=== PATIENT | male | born 1980 | race Caucasian/White ===

== ENCOUNTER 2020-06-04 18:45 | Inpatient (IN) ==
[2020-06-04 19:16] VITALS: BMI 36.5
--- NOTE | 2020-06-04 20:23 | DR.URIAD ---
HPI Time Seen Time Seen by Provider: 06/04/20 20:21 PCP Primary Care Physician: VIVEK MUNROE HPI Comment HPI Comment: cough, fever to 100.2 and congestion x one week; has had constant adams for the past month as well as fever and "cold chills" which started 05/06 and sent him to the ER where both rapid and "send off" covid tests were negative; symptoms persisted and he went [facility] for the same thing where cxr and repeat covid were negative; he then went to [facility] where he was admitted for LP which was negative; ct was negative as well; he was told by neuro he has migraine; he went to another doctor and got an mri w/contrast which was also negative; now he says the headache is actually better but the cough is awful and unrelenting; he was placed on losartan while in [facility] and is still taking that; he has also lost about twenty pounds because he has no appetite. Complaint Chief Complaint:: PT AMBUALTORY IN ED WITH C/O COUGH, DIARRHA, CHILLS, ADAMS FOR 5 WEEKS. A;SO STATES HE HAS LOST ABOUT 20 POUNDS. COVID-19 Coronavirus risk:travel/contact w/high risk person: Yes Has patient experienced Coronavirus symptoms: Yes Coronavirus symptoms experienced: Fever, Coughing and Shortness of Breath Source History Provided: Patient Mode of Arrival Mode of Arrival: Ambulatory Timing Onset of Chief Complaint: 04/30/20 PMH PMH Past Medical History: Yes Past Medical History: Hypertension Past Surgical History: No Family History History of Family Medical Conditions: Yes Family Medical History: Diabetes Mellitus and Hypertension Social History Does patient currently use any type of tobacco product: No Have you used tobacco products in the last 12 months: No Type of Tobacco Use: Smokeless Does any household member use tobacco: No Do you use any recreational Drugs:: No Lives With: Spouse Lives Where: Home Travel Risk Coronavirus risk:travel/contact w/high risk person: Yes Has patient experienced Coronavirus symptoms: Yes Coronavirus symptoms experienced: Fever, Coughing and Shortness of Breath Infectious screening In the last 2 months have you had wt loss of >10#?: NO Have you had fever, night sweats or hemotysis?: No Have you traveled outside the country in the last 6 months?: No Isolation: Droplet ROS Review of Systems Constitutional: See HPI, Chills and Malaise Respiratoy: See HPI Cardiovascular: No Symptoms Reported Gastrointestinal/Abdominal: Diarrhea (x one week) Genitourinary: No Symptoms Reported Neurological: See HPI Musculoskeletal: No Symptoms Reported Integumentary: No Symptoms Reported Hematologic/Lymphatic: No Symptoms Reported Endocrine: See HPI, Unexplained Weight Loss and Decreased Appetite PE Vital Signs Vitals: Temperature 99.3 F Pulse Rate 88 Respiratory Rate 20 Blood Pressure 132/91 O2 Sat by Pulse Oximetry 98 General Limitations: No Limitations General Appearance: Alert and In No Apparent Distress Head Head Exam: Normal Inspection, Atraumatic and Normocephalic Eyes Eye exam: Normal Appearance, PERRL and EOMI Neck Neck Exam: Normal Inspection, Full ROM and Trachea Midline Chest Chest Inspection: Normal Inspection and Symmetric Chest Wall Rise Respiratory Respiratory Exam: Normal Lung Sounds Bilat Respiratory Exam: Bilateral: Clear to Auscultation Cardiovascular Cardiovascular Exam: Regular Rate and Normal Rhythm Abdominal Exam Abdominal Exam: Normal Inspection, Normal Bowel Sounds and Soft Extremeties Extremities Exam: Normal Inspection Neurologic Neurological Exam: Alert, Oriented X3 and CN II-XII Intact Psychiatric Psychiatric Exam: Normal Affect COURSE Reevaluation 1st: Unchanged 2nd: Unchanged (wants to go home; talked to pt and he chose to stay) Consultation Call Returned: 23:20 (Dr Reese accepts admission) ROR Labs Reviewed Result Diagrams: 06/04/20 20:33 06/04/20 20:33 Laboratory: WBC 6.6 X10^3/uL (3.6-10.0) 06/04/20 20:33 RBC 4.69 X10^6/uL (4.7-6.0) L 06/04/20 20:33 Hgb 14.2 g/dL (13.5-18.0) 06/04/20 20:33 Hct 39.8 % (42.0-54.0) L 06/04/20 20:33 MCV 84.8 fL (80.0-100.0) 06/04/20 20:33 MCH 30.2 pg (27.0-34.0) 06/04/20 20: MCHC 35.6 g/dL (33.0-35.0) H 06/04/20 20:33 RDW 12.4 % (11.6-16.5) 06/04/20: Plt Count 312 X10^3/uL (150.0-450.0) 06/04/20: MPV 7.7 fL (7.4-11.0) 06/04/20: Neut % (Auto) 60.3 % (42.0-75.0) 06/04/20: Lymph % (Auto) 28.5 % (21.0-51.0) 06/04/20: Hayes % (Auto) 9.1 % (0.0-13.0) 06/04/20: Eos % (Auto) 1.9 % (0.9-2.9) 06/04/20 Baso % (Auto) 0.2 % (0.2-1.0) 06/04/20 Neut # (Auto) 4.0 x10^3/uL (2.2-4.8) 06/04/20: Lymph # (Auto) 1.9 X10^3/uL (1.3-2.9) 06/04/20: Hayes # (Auto) 0.6 x10^3/uL (0.3-0.8) 06/04/20: Eos # (Auto) 0.1 x10^3/uL (0.0-0.2) 06/04/20: Baso # (Auto) 0.0 X10^3/uL (0.0-0.1) 06/04/20: Absolute Nucleated RBC 0.0 /100WBC 06/04/20: ESR 87 MM/HOUR (0-15) H 06/04/20: Sample Site Rr 06/04/20 22:46 ABG pH 7.420 (7.35-7.45) 06/04/20 22:46 ABG pCO2 40.0 mmHg (35.0-45.0) 06/04/20 22:46 ABG pO2 73.0 mmHg (80.0-100.0) L 06/04/20 22:46 ABG HCO3 25.9 mmol/L (22-26) 06/04/20 22:46 ABG O2 Saturation 95.0 % (90-100) 06/04/20 22:46 ABG Base Excess 1.3 mmol/L (-2.0-2.0) 06/04/20 22:46 Rafita Test Pos 06/04/20 22:46 A-a Gradient 27.0 mmHg 06/04/20 22:46 FiO2 21.0 06/04/20 22:46 Blood Gas Comments Mikaela well ae 06/04/20 22:46 Sodium 140 mmol/L (136-145) 06/04/20 20:33 Corrected Sodium TNP 06/04/20 20:33 Potassium 3.2 mmol/L (3.5-5.1) L 06/04/20 20:33 Chloride 102 mmol/L (98-107) 06/04/20 20:33 Carbon Dioxide 28.8 mmol/L (21-32) 06/04/20 20:33 BUN 9 mg/dL (7-18) 06/04/20 20:33 Creatinine 1.01 mg/dL (0.70-1.30) 06/04/20 20:33 Est GFR (MDRD) Af Amer > 60 (>60) 06/04/20 20:33 Est GFR (MDRD) Non-Af > 60 (>60) 06/04/20 20:33 Glucose 108 mg/dL (65-99) H 06/04/20 20:33 Calcium 9.0 mg/dL (8.5-10.1) 06/04/20 20:33 Corrected Calcium TNP 06/04/20 20:33 Ferritin 521 ng/mL (26-388) H 06/04/20 20:33 Total Bilirubin 0.50 mg/dL (0.2-1.0) 06/04/20 20:33 AST 26 Units/L (15-37) 06/04/20 20:33 ALT 53 Units/L (12-78) 06/04/20 20:33 Alkaline Phosphatase 165 Units/L (46-116) H 06/04/20 20:33 C-Reactive Protein 8.70 mg/L (0-3.0) H 06/04/20 20:33 Total Protein 8.3 g/dL (6.4-8.2) H 06/04/20 20:33 Albumin 3.9 g/dL (3.4-5.0) 06/04/20 20:33 Globulin 4.4 g/dL (2.5-4.5) 06/04/20 20:33 Albumin/Globulin Ratio 0.9 Ratio (1.1-2.1) L 06/04/20 20:33 TSH 3rd Generation 3.823 uIU/mL (0.358-3.74) H 06/04/20 20:33 Specimen Type Clean catch urine 06/04/20 23:32 Urine Color Yellow (YELLOW) 06/04/20 23:32 Urine Appearance Clear (CLEAR) 06/04/20 23:32 Urine pH 6.0 (5.0 - 8.0) 06/04/20 23:32 Ur Specific [place] 1.015 (1.000-1.030) 06/04/20 23:32 Urine Protein 1+ (NEGATIVE) 06/04/20 23:32 Urine Glucose (UA) Negative (NEGATIVE) 06/04/20 23:32 Urine Ketones Negative (NEGATIVE) 06/04/20 23:32 Urine Occult Blood Negative (NEGATIVE) 06/04/20 23:32 Urine Nitrite Negative (NEGATIVE) 06/04/20 23:32 Urine Bilirubin Negative (NEGATIVE) 06/04/20 23:32 Urine Urobilinogen Normal (NORMAL) 06/04/20 23:32 Ur Leukocyte Esterase Negative (NEGATIVE) 06/04/20 23:32 Urine RBC None seen /HPF (0-3) 06/04/20 23:32 Urine WBC None seen /HPF (0-5) 06/04/20 23:32 Ur Squamous Epith Cells Rare /HPF (NEGATIVE) 06/04/20 23:32 Urine Bacteria Negative /HPF (NEGATIVE) 06/04/20 23:32 Ur Culture Indicated? No/not indicated 06/04/20 23:32 SARS-CoV-2 (PCR) Positive (NEGATIVE) A 06/05/20 00:15 Opioid Opioid Risk Tool Age (Je box if 16-45): Yes History of Preadolescent Sexual Abuse: No Total: 1 Total Score Risk Category: Low Risk Copyright: Karan MANZANO predicting aberrant behaviors Diagnosis Discharge Problem: Bilateral interstitial pneumonia, Cough, COVID-19, Acute hypokalemia Instructions Instructions: Community-Acquired Pneumonia, Adult, [id number] Forms: Precautions for COVID19 Patient Portal Social Distancing
--- NOTE | 2020-06-04 20:34 | RAD ---
HISTORY:Fever, cough, shortness of breath, chills, diarrhea, headacheStudy: Single view chestComparison:NoneFindings:Single portable view submitted. Bilateral multifocal lung infiltrates are present suggestive of pneumonia.Cardiac and mediastinal contours are within normal limits .The soft tissues are intact .IMPRESSION:1. Bilateral multifocal lung infiltrates compatible with pneumonia.Electronically signed by: CHEYENNE PETERS (Jun 04, 2020 20:33:44)
[2020-06-04] MEDS ORDERED: ZITHROMAX INJ 500 MG VIAL 500 MG in NS 250 ML IV 250 ML IV SCH (20:44)
[2020-06-04] MEDS ORDERED: ROCEPHIN VIAL 1 GRAM 1 G in NS 100 ML IV + SPIKE MINIBAG* 100 ML IV ONE (20:44)
[2020-06-04 20:46] LABS: BASOPHILS % (AUTO) 0.2 % (0.2-1.0); EOSINOPHILS # (AUTO) 0.1 x10^3/uL (0.0-0.2); EOSINOPHILS % (AUTO) 1.9 % (0.9-2.9); HEMATOCRIT 39.8 % (42.0-54.0); HEMOGLOBIN 14.2 g/dL (13.5-18.0); LYMPHOCYTES # (AUTO) 1.9 X10^3/uL (1.3-2.9); LYMPHOCYTES % (AUTO) 28.5 % (21.0-51.0); MEAN CORPUSCULAR HEMOGLOBIN 30.2 pg (27.0-34.0); MEAN CORPUSCULAR HGB CONC 35.6 g/dL (33.0-35.0); MEAN CORPUSCULAR VOLUME 84.8 fL (80.0-100.0); MEAN PLATELET VOLUME 7.7 fL (7.4-11.0); MONOCYTES # (AUTO) 0.6 x10^3/uL (0.3-0.8); MONOCYTES % (AUTO) 9.1 % (0.0-13.0); NEUTROPHILS % (AUTO) 60.3 % (42.0-75.0); PLATELET COUNT 312 X10^3/uL (150.0-450.0); RED BLOOD COUNT 4.69 X10^6/uL (4.7-6.0); RED CELL DISTRIBUTION WIDTH 12.4 % (11.6-16.5); WHITE BLOOD COUNT 6.6 X10^3/uL (3.6-10.0)
[2020-06-04] MEDS ORDERED: ROCEPHIN VIAL 1 GRAM ONE (21:01)
[2020-06-04] MEDS ORDERED: NS 250 ML IV 250 ML IV ONE (21:01)
[2020-06-04] MEDS ORDERED: NS 100 ML IV + SPIKE MINIBAG* 100 ML IV ONE (21:01)
[2020-06-04] MEDS ORDERED: ZITHROMAX INJ 500 MG VIAL IV ONE (21:01)
[2020-06-04] MEDS ORDERED: NS 1000 ML 1,000 ML ONE (21:02)
[2020-06-04 21:07] LABS: ALANINE AMINOTRANSFERASE 53 Units/L (12-78); ALBUMIN 3.9 g/dL (3.4-5.0); ALKALINE PHOSPHATASE 165 Units/L (46-116); ASPARTATE AMINO TRANSFERASE 26 Units/L (15-37); BLOOD UREA NITROGEN 9 mg/dL (7-18); CARBON DIOXIDE 28.8 mmol/L (21-32); CHLORIDE 102 mmol/L (98-107); CREATININE 1.01 mg/dL (0.70-1.30); SODIUM 140 mmol/L (136-145); TOTAL PROTEIN 8.3 g/dL (6.4-8.2); TSH (3RD GENERATION) 3.823 uIU/mL (0.358-3.74); eGFR NON BLACK RACES > 60 (>60)
[2020-06-04 21:17] LABS: ERYTHROCYTE SEDIMENTATION RATE 87 MM/HOUR (0-15)
[2020-06-04] MEDS ORDERED: NS 1000 ML 1,000 ML IV SCH (22:00)
[2020-06-04 22:52] LABS: ABG ALLEN TEST POS; ABG BASE EXCESS 1.3 mmol/L (-2.0-2.0); ABG HCO3 25.9 mmol/L (22-26)
[2020-06-04] MEDS ORDERED: K-DUR TAB 20 MEQ PO ONE ×2 (23:22)
[2020-06-04 23:42] LABS: BILIRUBIN,URINE NEGATIVE (NEGATIVE); BLOOD/HEMOGLOBIN,URINE NEGATIVE (NEGATIVE); GLUCOSE, URINE NEGATIVE (NEGATIVE); KETONES,URINE NEGATIVE (NEGATIVE); LEUKOCYTE ESTERASE ,URINE NEGATIVE (NEGATIVE); NITRITES,URINE NEGATIVE (NEGATIVE); PROTEIN,URINE 1+ (NEGATIVE); UROBILINOGEN,URINE NORMAL (NORMAL)
[2020-06-04 23:51] LABS: APPEARANCE,URINE CLEAR (CLEAR); BACTERIA,URINE NEGATIVE /HPF (NEGATIVE); COLOR,URINE YELLOW (YELLOW); RBC,URINE NONE SEEN /HPF (0-3); SQUAMOUS EPITHELIAL CELL,UR RARE /HPF (NEGATIVE)
[2020-06-05] MEDS: NS 1000 ML 1,000 ML IV SCH (02:26)
[2020-06-05] MEDS: ASCORBIC ACID INJ MULTI-DOSE VIAL 1,500 MG in NS 100 ML IV 100 ML IV SCH ×4 (02:47→20:30)
[2020-06-05] MEDS: DECADRON TAB PO SCH ×2 (02:47→09:23)
[2020-06-05] MEDS ORDERED: PLAQUENIL PO SCH (03:00)
[2020-06-05 05:45] LABS: BASOPHILS % (AUTO) 0.3 % (0.2-1.0); EOSINOPHILS # (AUTO) 0.1 x10^3/uL (0.0-0.2); EOSINOPHILS % (AUTO) 2.6 % (0.9-2.9); HEMOGLOBIN 12.4 g/dL (13.5-18.0); LYMPHOCYTES # (AUTO) 2.2 X10^3/uL (1.3-2.9); LYMPHOCYTES % (AUTO) 41.8 % (21.0-51.0); MEAN CORPUSCULAR HEMOGLOBIN 30.6 pg (27.0-34.0); MEAN CORPUSCULAR HGB CONC 35.5 g/dL (33.0-35.0); MEAN CORPUSCULAR VOLUME 86.2 fL (80.0-100.0); MONOCYTES # (AUTO) 0.6 x10^3/uL (0.3-0.8); MONOCYTES % (AUTO) 11.6 % (0.0-13.0); NEUTROPHILS # (AUTO) 2.3 x10^3/uL (2.2-4.8); NEUTROPHILS % (AUTO) 43.7 % (42.0-75.0); PLATELET COUNT 276 X10^3/uL (150.0-450.0); RED BLOOD COUNT 4.06 X10^6/uL (4.7-6.0); RED CELL DISTRIBUTION WIDTH 12.4 % (11.6-16.5); WHITE BLOOD COUNT 5.3 X10^3/uL (3.6-10.0)
[2020-06-05 06:08] LABS: ALANINE AMINOTRANSFERASE 44 Units/L (12-78); ALBUMIN 3.3 g/dL (3.4-5.0); ALKALINE PHOSPHATASE 140 Units/L (46-116); ASPARTATE AMINO TRANSFERASE 20 Units/L (15-37); BLOOD UREA NITROGEN 8 mg/dL (7-18); CALCIUM 8.4 mg/dL (8.5-10.1); CARBON DIOXIDE 28.6 mmol/L (21-32); CHLORIDE 104 mmol/L (98-107); CREATININE 0.91 mg/dL (0.70-1.30); SODIUM 141 mmol/L (136-145); TOTAL PROTEIN 7.1 g/dL (6.4-8.2); eGFR NON BLACK RACES > 60 (>60)
[2020-06-05] MEDS ORDERED: K-RIDER 10 MEQ/NS 100 ML 10 MEQ/100 ML BAG IV PRN (07:31)
[2020-06-05] MEDS ORDERED: K-DUR TAB 20 MEQ PO PRN (07:31)
[2020-06-05] MEDS ORDERED: MAGNESIUM SULFATE 1 GRAM/100 mL PREMIX 1 GM/100 ML BAG IV PRN (07:31)
[2020-06-05] MEDS ORDERED: POTASSIUM CHL 40 MEQ/NS 0.45% 500 ML IV PRN (07:31)
[2020-06-05] MEDS ORDERED: MICRO K EXTEN CAP 10 MEQ PO PRN (07:31)
[2020-06-05] MEDS ORDERED: POTASSIUM CHL 60 MEQ/NS 0.45% 500 ML IV PRN (07:31)
[2020-06-05] MEDS ORDERED: POTASSIUM CHLORIDE LIQ 20 MEQ UDC PO PRN (07:31)
[2020-06-05] MEDS ORDERED: KLOR-CON PO PRN (07:31)
[2020-06-05] MEDS ORDERED: REMDESIVIR (INVESTIGATIONAL DRUG GS-5734) 200 MG in NS 250 ML IV 250 ML IV NR (09:00)
[2020-06-05] MEDS ORDERED: VITAMIN D (1.25MG) PO SCH (09:00)
[2020-06-05] MEDS ORDERED: VITAMIN A PO SCH (09:00)
[2020-06-05] MEDS ORDERED: PLAQUENIL ONE (09:08)
[2020-06-05] MEDS ORDERED: K-DUR TAB 20 MEQ PO ONE (09:08)
[2020-06-05] MEDS: LOVENOX INJ 30 MG SYR SC SCH ×2 (09:18→20:30)
[2020-06-05] MEDS ORDERED: NS 100 ML IV 100 ML IV ONE (09:18)
[2020-06-05] MEDS: ZINC SULFATE PO SCH ×2 (09:20→20:31)
[2020-06-05] MEDS: COZAAR PO SCH (09:22)
[2020-06-05] MEDS: TRICOR TAB 160 MG PO SCH (09:24)
[2020-06-05] MEDS ORDERED: ASCORBIC ACID INJ MULTI-DOSE VIAL IV ONE (09:28)
[2020-06-05] MEDS ORDERED: TYLENOL 325 MG TAB PO ONE (10:21)
[2020-06-05] MEDS: TYLENOL 325 MG TAB PO PRN (10:22)
--- NOTE | 2020-06-05 18:11 | DR.H&P ---
H&P - History & Physical for Day of: H&P Date: 06/05/20 - Chief Complaint Chief Complaint: WEAKNESS, CCC, SOB - History of Present Illness History of Present Illness: PT IS 40 WM, CO SICK WITH FEVER, FLU LIKE SYMPTOMS FOR 2 1/2 WEEKS, GETTING WORSE. PT HAD PMH OF HTN. PT HAD PNEUMONIA ON CXR IN ER. PT ADMITTED FOR TREATMENT COVID 19 PNEUMONIA. - Past Medical History Past Medical History: Hypertension - Family History Family Medical History: Diabetes Mellitus, Hypertension - Social History Does patient currently use any type of tobacco product: Yes (dip/snuff) Have you used tobacco products in the last 12 months: Yes Type of Tobacco Use: Smokeless Does any household member use tobacco: No Alcohol Use: Occasionally Drug Use: None - Medications Home Medications: No Known Drug Allergies Allergy (Verified 06/04/20 19:17) CONTINUE taking the following medications doxycycline monohydrate 100 mg PO BID 06/04/20 [History] losartan 50 mg PO QAM 06/04/20 [History] - Review of Systems Constitutional: Fever, Chills, Weakness, Malaise Eyes: No Symptoms Reported ENT: No Symptoms Reported Respiratory: Cough, Shortness of Breath, SOB with Excertion Cardiovascular: No Symptoms Reported Gastrointestinal: Nausea, Vomiting, Diarrhea Genitourinary: No Symptoms Reported Musculoskeletal: Back Pain Skin: No Symptoms Reported Neurological: No Symptoms Reported - Physical Exam Vital Signs: Temperature 98.9 F Pulse Rate [Right Brachial] 75 Pulse Rate [Left Radial] 79 Pulse Rate 88 Respiratory Rate 20 Blood Pressure [Right Arm] 120/66 Blood Pressure 132/91 O2 Sat by Pulse Oximetry 96 Oriented: Normal Ear: Normal Nose: Normal Throat: Normal Respiratory: Diminished Throughout Cardiovascular: Normal. negative: Edema : Normal Auscultation: Bowel Sounds: Normal Palpation: Normal Tenderness: Normal Skin: Decreased Turgur Musculoskeletal: Normal Psychiatric: Normal Mood Description: Calm Affect: Anxious Speech Pattern: Clear - Assessment/Plan (1) COVID-19 Status: Acute Plan: ADMIT, ICU ISOLATION. IV HYDRATION, BP CONTROL. SUPPLEMENTAL O2, ABG ON ADMISSION. STRICT I&OS, IV REMDESIVIR, SOLU MEDROL. RESP THERAPY, IV ZITHROMAX AND ZOSYN. CONVALESCENT PLASMA (2) Bilateral interstitial pneumonia Status: Acute (3) Hypertension Status: Acute (4) Acute hypokalemia Status: Acute - Allergies Allergies/Adverse Reactions: Allergies Allergy/AdvReac Type Severity Reaction Status Date / Time No Known Drug Allergies Allergy Verified 06/04/20 19:17
[2020-06-05] MEDS: ROCEPHIN VIAL 1 GRAM 1 G in NS 100 ML IV + SPIKE MINIBAG* 100 ML IV SCH (20:00)
[2020-06-05] MEDS: ZITHROMAX INJ 500 MG VIAL 500 MG in NS 250 ML IV 250 ML IV SCH (21:22)
[2020-06-06] MEDS: NS 1000 ML 1,000 ML IV SCH (02:15)
[2020-06-06] MEDS: ASCORBIC ACID INJ MULTI-DOSE VIAL 1,500 MG in NS 100 ML IV 100 ML IV SCH ×4 (02:16→20:00)
[2020-06-06] MEDS: TYLENOL 325 MG TAB PO PRN (03:57)
[2020-06-06 05:31] LABS: BASOPHILS % (AUTO) 0.2 % (0.2-1.0); EOSINOPHILS % (AUTO) 0.1 % (0.9-2.9); HEMATOCRIT 35.2 % (42.0-54.0); HEMOGLOBIN 12.5 g/dL (13.5-18.0); LYMPHOCYTES # (AUTO) 1.4 X10^3/uL (1.3-2.9); MEAN CORPUSCULAR HEMOGLOBIN 30.6 pg (27.0-34.0); MEAN CORPUSCULAR HGB CONC 35.4 g/dL (33.0-35.0); MEAN CORPUSCULAR VOLUME 86.4 fL (80.0-100.0); MEAN PLATELET VOLUME 8.3 fL (7.4-11.0); MONOCYTES # (AUTO) 0.6 x10^3/uL (0.3-0.8); MONOCYTES % (AUTO) 9.6 % (0.0-13.0); NEUTROPHILS # (AUTO) 4.1 x10^3/uL (2.2-4.8); NEUTROPHILS % (AUTO) 67.1 % (42.0-75.0); PLATELET COUNT 334 X10^3/uL (150.0-450.0); RED BLOOD COUNT 4.08 X10^6/uL (4.7-6.0); RED CELL DISTRIBUTION WIDTH 12.3 % (11.6-16.5)
[2020-06-06 06:11] LABS: ALANINE AMINOTRANSFERASE 48 Units/L (12-78); ALBUMIN 3.2 g/dL (3.4-5.0); ALKALINE PHOSPHATASE 139 Units/L (46-116); ASPARTATE AMINO TRANSFERASE 24 Units/L (15-37); BLOOD UREA NITROGEN 7 mg/dL (7-18); CALCIUM 8.7 mg/dL (8.5-10.1); CARBON DIOXIDE 26.2 mmol/L (21-32); CHLORIDE 108 mmol/L (98-107); COR CA(FOR HYPOALB) 9.3 mg/dL (8.5-10.1); COR NA(FOR HYPERGLY) 144 mmol/L (136-145); CREATININE 0.79 mg/dL (0.70-1.30); SODIUM 144 mmol/L (136-145); TOTAL PROTEIN 7.2 g/dL (6.4-8.2); eGFR NON BLACK RACES > 60 (>60)
[2020-06-06] MEDS: ROBITUSSIN DM PO SCH ×4 (10:48→21:00)
[2020-06-06] MEDS: ZINC SULFATE PO SCH ×2 (10:48→21:00)
[2020-06-06] MEDS: SOLU-Medrol 125 MG VIAL IVP SCH ×3 (10:48→21:00)
[2020-06-06] MEDS: PROTONIX INJ 40 MG VIAL IVP SCH (10:49)
[2020-06-06] MEDS: TRICOR TAB 160 MG PO SCH (10:49)
[2020-06-06] MEDS: COZAAR PO SCH (10:49)
[2020-06-06] MEDS: LOVENOX INJ 30 MG SYR SC SCH ×2 (10:50→21:00)
[2020-06-06] MEDS: REMDESIVIR (INVESTIGATIONAL DRUG GS-5734) 100 MG in NS 250 ML IV 250 ML IV SCH (11:45)
[2020-06-06] MEDS: DUONEB 0.5 MG/3 MG (3 mL) NEB SCH ×3 (14:00→21:39)
[2020-06-06] MEDS ORDERED: BENADRYL INJ 50 MG VIAL IVP ONE (15:56)
[2020-06-06] MEDS: TYLENOL 325 MG TAB PO ONE (16:00)
[2020-06-06] MEDS ORDERED: TYLENOL 325 MG TAB PO ONE (16:30)
[2020-06-06] MEDS: ROCEPHIN VIAL 1 GRAM 1 G in NS 100 ML IV + SPIKE MINIBAG* 100 ML IV SCH (20:10)
[2020-06-06] MEDS: ZITHROMAX INJ 500 MG VIAL 500 MG in NS 250 ML IV 250 ML IV SCH (22:00)
[2020-06-07] MEDS: DUONEB 0.5 MG/3 MG (3 mL) NEB SCH ×6 (01:35→21:20)
[2020-06-07] MEDS: ASCORBIC ACID INJ MULTI-DOSE VIAL 1,500 MG in NS 100 ML IV 100 ML IV SCH ×4 (04:00→21:08)
[2020-06-07] MEDS ORDERED: TYLENOL 325 MG TAB PO ONE (04:23)
[2020-06-07 05:17] LABS: BASOPHILS # (AUTO) 0.1 X10^3/uL (0.0-0.1); HEMATOCRIT 37.5 % (42.0-54.0); HEMOGLOBIN 13.2 g/dL (13.5-18.0); LYMPHOCYTES # (AUTO) 1.4 X10^3/uL (1.3-2.9); LYMPHOCYTES % (AUTO) 12.5 % (21.0-51.0); MEAN CORPUSCULAR HEMOGLOBIN 30.4 pg (27.0-34.0); MEAN CORPUSCULAR HGB CONC 35.2 g/dL (33.0-35.0); MEAN CORPUSCULAR VOLUME 86.2 fL (80.0-100.0); MEAN PLATELET VOLUME 7.9 fL (7.4-11.0); MONOCYTES # (AUTO) 0.3 x10^3/uL (0.3-0.8); MONOCYTES % (AUTO) 2.4 % (0.0-13.0); NEUTROPHILS # (AUTO) 9.1 x10^3/uL (2.2-4.8); NEUTROPHILS % (AUTO) 84.1 % (42.0-75.0); PLATELET COUNT 386 X10^3/uL (150.0-450.0); RED BLOOD COUNT 4.36 X10^6/uL (4.7-6.0); RED CELL DISTRIBUTION WIDTH 12.9 % (11.6-16.5); WHITE BLOOD COUNT 10.8 X10^3/uL (3.6-10.0)
[2020-06-07 05:31] LABS: ALANINE AMINOTRANSFERASE 43 Units/L (12-78); ALBUMIN 3.4 g/dL (3.4-5.0); ALKALINE PHOSPHATASE 140 Units/L (46-116); ASPARTATE AMINO TRANSFERASE 13 Units/L (15-37); BLOOD UREA NITROGEN 9 mg/dL (7-18); CALCIUM 9.2 mg/dL (8.5-10.1); CHLORIDE 107 mmol/L (98-107); COR NA(FOR HYPERGLY) 145 mmol/L (136-145); CREATININE 0.91 mg/dL (0.70-1.30); SODIUM 144 mmol/L (136-145); TOTAL PROTEIN 7.5 g/dL (6.4-8.2); eGFR NON BLACK RACES > 60 (>60)
[2020-06-07 05:31] LABS: ABG HCO3 23.8 mmol/L (22-26)
[2020-06-07 05:32] LABS: ABG ALLEN TEST POS
--- NOTE | 2020-06-07 05:47 | RAD ---
HISTORYPNEUMONIASTUDYCHEST, 1 LHIRHRVDRAGAUD48/14/2020FINDINGSThe trachea is midline. The cardiac silhouette is unremarkable. Suboptimal inspiratory effort. Mild multifocal interstitial infiltrates unchanged. No pleural effusion or pneumothorax.. The bony thorax is unremarkable.IMPRESSIONStable portable chestElectronically signed by: Jack Shaw (Jun 07, 2020 05:46:32)
[2020-06-07] MEDS: SOLU-Medrol 125 MG VIAL IVP SCH ×3 (06:49→21:09)
[2020-06-07] MEDS: NS 1000 ML 1,000 ML IV SCH (06:50)
[2020-06-07] MEDS: COZAAR PO SCH (10:05)
[2020-06-07] MEDS: LOVENOX INJ 30 MG SYR SC SCH ×2 (10:06→21:09)
[2020-06-07] MEDS: PROTONIX INJ 40 MG VIAL IVP SCH (10:06)
[2020-06-07] MEDS: TRICOR TAB 160 MG PO SCH (10:07)
[2020-06-07] MEDS: ROBITUSSIN DM PO SCH ×4 (10:07→21:09)
[2020-06-07] MEDS: VITAMIN A PO SCH (10:07)
[2020-06-07] MEDS: VITAMIN D3 125 mcg (5,000 UNITS) PO SCH (10:07)
[2020-06-07] MEDS: ZINC SULFATE PO SCH ×2 (10:08→21:09)
[2020-06-07] MEDS: REMDESIVIR (INVESTIGATIONAL DRUG GS-5734) 100 MG in NS 250 ML IV 250 ML IV SCH (11:45)
[2020-06-07] MEDS: TYLENOL 325 MG TAB PO PRN (17:47)
[2020-06-07] MEDS: ROCEPHIN VIAL 1 GRAM 1 G in NS 100 ML IV + SPIKE MINIBAG* 100 ML IV SCH (21:08)
[2020-06-07] MEDS: ZITHROMAX INJ 500 MG VIAL 500 MG in NS 250 ML IV 250 ML IV SCH (21:09)
[2020-06-08] MEDS: DUONEB 0.5 MG/3 MG (3 mL) NEB SCH ×4 (00:25→12:15)
[2020-06-08] MEDS: NS 1000 ML 1,000 ML IV SCH (02:34)
[2020-06-08] MEDS: ASCORBIC ACID INJ MULTI-DOSE VIAL 1,500 MG in NS 100 ML IV 100 ML IV SCH ×2 (02:34→09:22)
[2020-06-08 05:26] LABS: BASOPHILS % (AUTO) 0.1 % (0.2-1.0); HEMATOCRIT 33.6 % (42.0-54.0); HEMOGLOBIN 11.7 g/dL (13.5-18.0); LYMPHOCYTES # (AUTO) 1.1 X10^3/uL (1.3-2.9); MEAN CORPUSCULAR HEMOGLOBIN 30.4 pg (27.0-34.0); MEAN CORPUSCULAR HGB CONC 34.8 g/dL (33.0-35.0); MEAN CORPUSCULAR VOLUME 87.4 fL (80.0-100.0); MEAN PLATELET VOLUME 8.5 fL (7.4-11.0); MONOCYTES # (AUTO) 0.7 x10^3/uL (0.3-0.8); MONOCYTES % (AUTO) 4.7 % (0.0-13.0); NEUTROPHILS # (AUTO) 13.2 x10^3/uL (2.2-4.8); NEUTROPHILS % (AUTO) 88.2 % (42.0-75.0); PLATELET COUNT 366 X10^3/uL (150.0-450.0); RED BLOOD COUNT 3.84 X10^6/uL (4.7-6.0)
[2020-06-08] MEDS: TYLENOL 325 MG TAB PO PRN (05:30)
[2020-06-08 05:35] LABS: ALANINE AMINOTRANSFERASE 35 Units/L (12-78); ALKALINE PHOSPHATASE 120 Units/L (46-116); ASPARTATE AMINO TRANSFERASE 12 Units/L (15-37); BLOOD UREA NITROGEN 10 mg/dL (7-18); CALCIUM 8.6 mg/dL (8.5-10.1); CARBON DIOXIDE 26.6 mmol/L (21-32); CHLORIDE 108 mmol/L (98-107); COR CA(FOR HYPOALB) 9.4 mg/dL (8.5-10.1); COR NA(FOR HYPERGLY) 147 mmol/L (136-145); CREATININE 0.88 mg/dL (0.70-1.30); SODIUM 143 mmol/L (136-145); TOTAL PROTEIN 6.4 g/dL (6.4-8.2); eGFR NON BLACK RACES > 60 (>60)
[2020-06-08] MEDS: SOLU-Medrol 125 MG VIAL IVP SCH (06:36)
[2020-06-08] MEDS: ZINC SULFATE PO SCH (09:22)
[2020-06-08] MEDS: REMDESIVIR (INVESTIGATIONAL DRUG GS-5734) 100 MG in NS 250 ML IV 250 ML IV SCH (09:22)
[2020-06-08] MEDS: VITAMIN D3 125 mcg (5,000 UNITS) PO SCH (09:23)
[2020-06-08] MEDS: COZAAR PO SCH (09:23)
[2020-06-08] MEDS: TRICOR TAB 160 MG PO SCH (09:23)
[2020-06-08] MEDS: VITAMIN A PO SCH (09:24)
[2020-06-08] MEDS: ROBITUSSIN DM PO SCH (09:24)
[2020-06-08] MEDS: PROTONIX INJ 40 MG VIAL IVP SCH (09:24)
[2020-06-08 09:34] LABS: ABG ALLEN TEST POS; ABG BASE EXCESS -0.7 mmol/L (-2.0-2.0); ABG HCO3 23.4 mmol/L (22-26)
[2020-06-08] MEDS: LOVENOX INJ 30 MG SYR SC SCH (09:53)
[2020-06-08 11:27] VITALS: BP 124/67
--- NOTE | 2020-06-08 11:56 | RAD ---
HISTORYCOVID, hypertensionSTUDYCHEST x-ray, 1 VIEWCOMPARISONX-ray 06/07/2020FINDINGSThere are vague bilateral lung infiltrates that are concerning for COVID-19 infection. These are similar to prior study. Possible mild CHF changes. No Myke B-lines are seen. Possible tiny amount of fluid in the right minor fissure, unchanged. No blunting of the CP angles. No evidence of pneumothorax.IMPRESSIONProbable bilateral pneumonia is similar to prior study.Possible mild CHF changes, similar to prior study.Electronically signed by: Albert Cisneros (Jun 08, 2020 11:55:20)
== END 2020-06-08 15:15 | disposition home or self-care (01) | DRG 177 ==
LOC: ER 19:09 → MED/SURG 06-05 01:27
PROVIDERS: ADMIT Internal Medicine; ATTEND Internal Medicine
DX: E87.6 Hypokalemia; I10 Essential (primary) hypertension; R63.4 Abnormal weight loss; R19.7 Diarrhea, unspecified; J12.89 Other viral pneumonia; U07.1 COVID-19